=== PATIENT | female | born 1945 | race Caucasian/White ===

== ENCOUNTER 2018-05-01 04:58 | Emergency (ER) | payer MEDICARE, OTHER ==
[~2018-05-01] VITALS: Ht 162.6 cm; Wt 81.8 kg
[2018-05-01 05:05] VITALS: Ht 162.6 cm; Wt 81.8 kg
[2018-05-01] MEDS ORDERED: NEURONTIN600 MG PO (05:06)
[2018-05-01] MEDS ORDERED: CELEXA40 MG PO (05:06)
[2018-05-01] MEDS ORDERED: MOBIC7.5 MG PO (05:06)
[2018-05-01] MEDS ORDERED: PRINIVIL20 MG (05:07)
[2018-05-01 05:30] LABS: BASOPHILS 0.5 % (0-2); EOSINOPHILS 1.3 % (0-7); HEMATOCRIT 36.8 % (36.0-48.0); HEMOGLOBIN 12.5 g/dL (12-16); IMMATURE GRANULOCYTES 0.3 % (0-5); LYMPHOCYTES 14.7 % (15-50); MCH 30.4 pg (26.0-34.0); MCV 89.5 fL (80.0-100.0); MONOCYTES 8.5 % (2-11); NEUTROPHILS 74.7 % (40-80); PLATELET COUNT 247 10x3/uL (130-400); RBC 4.11 10x6/uL (4.00-5.40); RDW 12.8 % (11.5-14.5); WBC 7.6 10x3/uL (4.8-10.8)
[2018-05-01 05:45] LABS: ALBUMIN 3.6 g/dL (3.4-5.0); ALKALINE PHOSPHATASE 100 U/L (46-116); ALT (SGPT) 28 U/L (10-68); BILIRUBIN - TOTAL 0.37 mg/dL (0.2-1.3); CALC OSMOLALITY 278 mosm/kg (275-300); CARBON DIOXIDE 26.3 mmol/L (21.0-32.0); CHLORIDE - SERUM 101 mmol/L (98-107); CREATININE - SERUM 1.1 mg/dL (0.6-1.3); GLUCOSE 117 mg/dL (74-106); POTASSIUM - SERUM 3.5 mmol/L (3.5-5.1); PROTEIN - SERUM 6.9 g/dL (6.4-8.2); SODIUM 138 mmol/L (136-145); UREA NITROGEN 17 mg/dL (7-18); eGFR NON AFRICAN AMERICAN 51 mL/min (90-120)
[2018-05-01 05:49] LABS: AMYLASE - SERUM 120 U/L (25-115); LIPASE 280 U/L (73-393)
[2018-05-01 05:51] LABS: TROPONIN-I < 0.017 ng/mL (0.000-0.060)
[2018-05-01 06:37] LABS: APPEARANCE CLOUDY (CLEAR); BILIRUBIN NEGATIVE (NEGATIVE); COLOR YELLOW (YELLOW); GLUCOSE NEGATIVE (NEGATIVE); KETONE NEGATIVE (NEGATIVE); NITRITE POSITIVE (NEGATIVE); PROTEIN TRACE mg/dL (NEGATIVE); SPECIFIC GRAVITY 1.015 (1.005-1.020); UROBILINOGEN NORMAL (NORMAL)
[2018-05-01 06:38] LABS: BACTERIA MANY /hpf (NONE SEEN); EPITHELIAL CELLS 0-5 /hpf (0-5); RED CELLS - URINE 0-5 /hpf (0-5)
[2018-05-01 07:05] VITALS: BP 146/80
== END 2018-05-01 07:06 | disposition home or self-care (01) ==
LOC: D.ER 04:58
PROVIDERS: Family Medicine
DX: M25.511 Pain in right shoulder (principal); I10 Essential (primary) hypertension; R00.1 Bradycardia, unspecified